=== PATIENT | male | born 1990 | race Hispanic/Latino ===

== ENCOUNTER 2022-12-10 11:46 | Emergency (ER) | payer SELFPAY ==
[~2022-12-10] VITALS: Ht 182.9 cm; Wt 142.9 kg
[2022-12-10] MEDS ORDERED: ALBUTEROL SULFATE HFA 8GM INHALATION AEROSOL INH PRN (12:00)
[2022-12-10 13:36] VITALS: BP 145/88; PULSE 86; RESP 17; O2SAT 97
== END 2022-12-10 13:41 | disposition home or self-care (01) ==
LOC: ER 12:00
DX: R06.2 Wheezing (principal); J06.9 Acute upper respiratory infection, unspecified; R05.9 Cough, unspecified; F17.210 Nicotine dependence, cigarettes, uncomplicated
CPT/HCPCS: 71046; 93005; 99283